=== PATIENT | male | born 1985 | race Caucasian/White ===

== ENCOUNTER 2018-07-10 06:32 | Day surgery (SDC) | payer OTHER ==
[~2018-07-10 06:32] MED LIST: CEFAZOLIN 2 GM/50 ML (PMX) 50 ML IVPB; LACTATED RINGER'S 1,000 ML IV*
[2018-07-10] MEDS ORDERED: GELATIN SIZE 100 SPONGE (07:41)
[2018-07-10] MEDS ORDERED: LIDOCAINE 2% (SDV) 5 ML INJ (08:11)
[2018-07-10] MEDS ORDERED: PROPOFOL 20 ML (08:11)
[2018-07-10] MEDS ORDERED: ROCURONIUM 50 MG INJ (08:11)
[2018-07-10] MEDS ORDERED: ONDANSETRON 4 MG INJ (08:26)
[2018-07-10] MEDS ORDERED: DEXAMETHASONE 4 MG/ML 1 ML INJ (08:26)
[2018-07-10] MEDS ORDERED: CEFAZOLIN 1 GM INJ (08:26)
[2018-07-10] MEDS: HEMOSTATIC MATRIX SYG ZFS ×2 (09:07→11:37)
[2018-07-10] MEDS ORDERED: SUGAMMADEX SODIUM 200 MG/2 ML VIAL IV (11:27)
[2018-07-10] MEDS ORDERED: PROCHLORPERAZINE 10 MG TAB PO (11:30)
[2018-07-10] MEDS ORDERED: HYDROCODONE/APAP (5/325) TAB PO ×2 (11:30)
[2018-07-10] MEDS ORDERED: NALOXONE (0.4 MG/ML) INJ IV (11:30)
[2018-07-10] MEDS ORDERED: ACETAMINOPHEN 325 MG TAB PO (11:30)
[2018-07-10] MEDS ORDERED: NACL 0.9% 3 ML SYG IV (11:30)
[2018-07-10] MEDS ORDERED: ONDANSETRON 4 MG INJ IV (11:30)
[2018-07-10] MEDS: BUPIVACAINE 0.25%/EPI (SDV) 30 ML INJ (11:37)
[2018-07-10] MEDS: BETAMET NA PHOS/AC(6 MG/ML) 5ML INJ (11:37)
[2018-07-10] MEDS: POLYMYXIN/BACITRACIN 1L IRRIG (11:37)
[2018-07-10] MEDS: THROMBIN 5000 UNIT VIAL (11:37)
[2018-07-10] MEDS: HYDROmorphONE 1 MG/5 ML IV SYRINGE IV ×3 (11:48→12:08)
[2018-07-10] MEDS ORDERED: HYDROmorphONE 1 MG/5 ML IV SYRINGE IV (12:00)
== END 2018-07-10 15:50 | disposition home or self-care (01) ==
LOC: SDS 06:32
DX: M51.17 Intervertebral disc disorders with radiculopathy, lumbosacral region (principal)
CPT/HCPCS: 63030; 72100; 88304; 97161